=== PATIENT | female | born 1985 | race Caucasian/White ===

== ENCOUNTER 2016-09-03 16:51 | Emergency (ER) | payer OTHER ==
[~2016-09-03] VITALS: Ht 167.6 cm; Wt 71.7 kg
[~2016-09-03 16:51] MED LIST: BENADRYL25 MG PO; CLARITIN,ALAVAR10 MG PO; ENDOCET 5-3251 EACH PO; FIORICET,ESG1 TABLET PO; IBUPROFEN800 MG PO; Motrin PO; NATALCARE RX1 TABLET PO; NOHOMEMEDS; PROMETHAZINE12.5 M1 PO; Percocet 5/325,Endoc PO
[2016-09-03 19:45] VITALS: BP 133/100
== END 2016-09-03 19:47 | disposition home or self-care (01) ==
LOC: EME 16:51
DX: R41.82 Altered mental status, unspecified (principal); F17.200 Nicotine dependence, unspecified, uncomplicated; Z88.1 Allergy status to other antibiotic agents
CPT/HCPCS: 80053; 81003; 85027; 93005; 99281; 99284; G0480; J2310